=== PATIENT | female | born 2000 | race Caucasian/White ===

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

== ENCOUNTER 2022-01-08 23:39 | Emergency (ER) | payer MEDICAID, SELFPAY ==
[2022-01-08 23:43] VITALS: BP 128/76; PULSE 92; RESP 16; TEMP 37.2; O2SAT 97; BMI 23.3
--- NOTE | 2022-01-09 00:08 | ED_ITS ---
HPI - Extremity Problem General Chief complaint: Extremity Injury, Upper Stated complaint: lac on hand/finger Time Seen by Provider: 01/09/22 00:08 Source: patient Mode of arrival: ambulatory Limitations: no limitations History of Present Illness HPI Narrative: 21-year-old female presents to the emergency department with lacerations to the right upper extremity to the hand, wrist area. Patient tells me that she got upset, punched a window and sustained cuts to her hand and wrist. Tells me she is able to move all her fingers and her wrist without difficulties. Denies numbness or tingling. Up-to-date on a tetanus shot. Patient is right-hand dominant. Not on thinners MD Complaint: other (Laceration ) Onset (ago): hour(s) (1) Pain Consistency: constant Radiation: none Related Data Previous Rx's Medication Instructions Recorded dicyclomine 10 mg capsule 10 mg PO TID PRN abdominal pain 06/26/20 #20 caps doxycycline hyclate 100 mg capsule 100 mg PO BID 10 days #20 caps 01/09/22 Allergies Allergy/AdvReac Type Severity Reaction Status Date / Time amoxicillin [AMOXICILLIN] Allergy Unknown RASH Verified 01/06/21 14:05 cephalexin [From KEFLEX] Allergy Unknown RASH Verified 01/06/21 14:05 Review of Systems Review of Systems: Constitutional : No Fever, No Chills, Cardiovascular : No Chest Pain, No SOB Respiratory : No Dyspnea Gastrointestinal : No abdominal pain Musculoskeletal : No Joint Swelling Skin : No rash, positive skin laceration Neuro : No Weakness, No Numbness Psych : No SI/HI Yes all other systems are reviewed and are negative PMFSH Past Medical History Attestation statement: The following information was validated with the patient. Source: old records reviewed and nursing notes reviewed Medical History No known health problems Social History Social History Substance Use Type: Marijuana Advance Directives: No Advance Directives Information Provided: Yes Physical Exam Vital Signs: Vital Signs: Last Vital Signs Temp 98.9 F 01/08/22 23:43 Pulse 92 01/08/22 23:43 Resp 16 01/08/22 23:43 BP 128/76 01/08/22 23:43 Pulse Ox 97 08/06/22 23:43 O2 Del Method 01/08/22 23:43 BMI result Body Mass Index 23.3 VSS Appearance: Alert.? Oriented X3.? No acute distress.? Head: Normocephalic, atraumatic, no step-offs or deformities Eyes: Pupils equal, round and reactive to light.? ENT: Pharynx normal.? Neck: Normal inspection.? Neck supple.? CVS: Normal heart rate and rhythm.? Pulses normal.? Respiratory: No respiratory distress.? Breath sounds normal.? Abdomen: Soft and nontender.? Skin: Skin warm and dry.? Normal skin color.? Normal skin turgor. + 4 cm linear laceration to the right forearm/wrist. + 3 cm laceration to the ring finger. No evidence of foreign bodies within wounds. Full range of motion to bilateral fingers, wrist. Capillary refill bilaterally less than 2 seconds. Normal sensation. Normal opposition and reposition. 2+ radial pulses equal bilateral. Extremities: No lower extremity edema.? No calf ttp. 5/5 strength to bilateral upper and lower extremities Neuro: Oriented X 3.? No motor deficit.? No sensory deficit. CN 2-12 intact Course Reevaluation(s) Reevaluation #1: Four sutures placed to the forearm, 3 placed to the finger. At this time patient will be discharged home with doxycycline. Advised to return in 7-10 days for suture removal. This time patient will be discharged home for Time: 01:02 MDM - Extremity (Nontraumatic) [facility] Narrative Medical decision making narrative: 0000 21-year-old female presenting with lacerations to the right upper extremity status post punching a window. Up-to-date on tetanus shot. Physical examination significant for + 4 cm linear laceration to the right forearm/wrist. + 3 cm laceration to the ring finger. No evidence of foreign shad dies within wounds. Full range of motion to bilateral fingers, wrist. Capillary refill bilaterally less than 2 seconds. Normal sensation. Normal opposition and reposition. 2+ radial pulses equal bilateral. Plan at this time is to suture the area. Areas well explored, no evidence of foreign body. I did percuss each area and was unable to identify any foreign bodies within. I did educate patient on possibility of retained foreign bodies, glass a not be evident on x-ray therefore an x-ray when all be done. Patient has full range of motion to bilateral fingers and wrists, low suspicion for fractures or dislocations Medical Records Attestation: I reviewed the patient's medical records. Lab Data Attestation: I reviewed the patient's lab results. Critical Care Time Critical Care Time Critical Care Time: No Discharge Plan Discharge Clinical Impression: Laceration of right upper extremity Patient Disposition: Home, Self-Care Instructions: Laceration (ED) Additional Instructions: Take your medications as prescribed. If you were prescribed antibiotics today, it is important that you take your medication to their entirety, do not skip any doses, do not finish them early. Follow-up with your primary care provider this week. Return to the emergency department with new or worsening symptoms. Such as feve rs, chills, chest pain, shortness of breath, nausea, vomiting, dizziness, headache, vision changes, lethargy In case of emergency call 911 Please return for suture removal in 7-10 days. 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
== END 2022-01-09 02:02 | disposition home or self-care (01) ==
PROVIDERS: Emergency Provider Student in an Organized Health Care Education/Training Program; PCP Nurse Practitioner Family
DX: S61.411A Laceration without foreign body of right hand, initial encounter (principal); S51.811A Laceration without foreign body of right forearm, initial encounter; W25.XXXA Contact with sharp glass, initial encounter; Y93.89 Activity, other specified; Y92.019 Unspecified place in single-family (private) house as the place of occurrence of the external cause; Y99.9 Unspecified external cause status
CPT/HCPCS: 12002; 99283; 99284

== ENCOUNTER 2022-08-15 10:19 | Emergency (ER) | payer MEDICAID, SELFPAY ==
[2022-08-15 10:33] VITALS: BP 135/90; PULSE 100; RESP 18; TEMP 36.9; O2SAT 99; BMI 30.4
--- NOTE | 2022-08-15 10:56 | ED_ITS ---
HPI - General Adult General Chief complaint: General Medical Stated complaint: swollen tonsils Time Seen by Provider: 08/15/22 10:55 Source: patient Mode of arrival: ambulatory Limitations: no limitations History of Present Illness HPI narrative: Patient is a 22 year old assigned female at with a history of frequent strep infections presenting to the emergency department today with a sore throat and concern that she has strep throat again. Patient states that her throat has hurt for the last 3 days. Patient denies any dizziness, lightheadedness, abdominal pain, nausea, vomiting, fever, chills, blurry vision, double vision, loss of vision, chest pain, difficulty breathing, shortness of breath, back pain, night sweats, pain with urination, increased urinary frequency, increased urinary urgency, blood in her urine or stool, syncope or a near syncopal episode, recent trauma or falls, bowel incontinence, bladder incontinence, bowel retention, bladder retention, or any other complaints at this time. Onset (ago): day(s) (3) Radiation: non-radiation Severity: mild Severity scale (1-10): 3 Quality: aching and dull Pain Consistency: constant Relieving factors: none Exacerbating factors: none Associated symptoms: denies other symptoms Treatments prior to arrival: none Related Data Previous Rx's Medication Instructions Recorded dicyclomine 10 mg capsule 10 mg PO TID PRN abdominal pain 06/26/20 #20 caps doxycycline hyclate 100 mg capsule 100 mg PO BID 10 days #20 caps 01/09/22 azithromycin 500 mg tablet 500 mg PO DAILY 5 days #5 tabs 08/15/22 Allergies Allergy/AdvReac Type Severity Reaction Status Date / Time amoxicillin [AMOXICILLIN] Allergy Unknown RASH Verified 01/06/21 14:05 cephalexin [From KEFLEX] Allergy Unknown RASH Verified 01/06/21 14:05 Review of Systems Constitutional: Constitutional: Reports no additional constitutional complaints, Denies chills, Denies fever(s) and Denies night sweats Eyes: Eyes: Reports no additional eye complaints, Denies blurry vision, Denies change in vision, Denies diplopia, Denies eye discharge, Denies loss of vision and Denies eye pain ENT: Denies dizziness and Reports sore throat Cardiovascular: Cardiovascular: Reports no additional cardiovascular complaints, Denies chest pain, Denies lightheadedness, Denies Loss of Consciousness and Denies dyspnea Respiratory: Respiratory: Reports no additional respiratory complaints and Denies dyspnea Gastrointestinal: Gastrointestinal: Reports no additional gastrointestinal complaints, Denies abdominal pain, Denies melena, Denies hematochezia, Denies change in bowel habits and Denies change in stool character Genitourinary: Genitourinary: Denies hematuria, Denies urinary frequency, Denies dysuria, Denies urinary incontinence, Denies urinary hesitancy and Denies urinary urgency Musculoskeletal: Musculoskeletal: Reports no additional musculoskeletal complaints, Denies numbness and Denies tingling Neurologic: Denies dizziness, Denies loss of vision, Denies numbness and Denies tingling Psychiatric: Psychiatric: Reports no additional psychiatric complaints Endocrine: Endocrine: Reports no additional endocrine complaints Hematologic/Lymphatic: Hematologic/Lymphatic: Reports no additional hematologic/lymphatic complaints Allergic/Immunologic: Allergic/Immunologic: Reports no additional allergic/immunologic complaints PMFSH Past Medical History Attestation statement: The following information was validated with the patient. Source: old records reviewed and nursing notes reviewed Medical History No known health problems Social History Social History Substance Use Type: Marijuana Advance Directives: No Advance Directives Information Provided: No Physical Exam ED Vital Signs: Vital Signs - 24 hr 08/15/22 10:33 Temperature 98.4 F Pulse Rate 100 Respiratory Rate 18 Blood Pressure 135/90 H Pulse Oximetry 99 BMI result Body Mass Index 30.4 Const General: cooperative, no acute distress, alert and awake Nutritional Appearance: well nourished Orientation/consciousness: patient oriented x3 Limitations: no limitations [facility] Head: Yes normal to inspection and Yes atraumatic Ears: hearing grossly normal bilaterally and external ears normal General nose exam: Normal external nose present, no nasal discharge noted and no epistaxis Face and sinus: Yes normal facial exam, No abrasion and No laceration Mouth: Normal oral and palatal mucosa present, no drooling and no muffled voice Throat: Yes posterior oropharynx abnormal (erythema and exudates present) Eyes General: appearance normal, both eyes and all related structures Periorbital: periorbital findings normal Eyelids: Yes eyelids normal Conjunctivae: conjunctivae normal Pupils: Equal, round and reactive pupils present EOM: EOMs intact bilaterally Neck Neck: Yes normal visual inspection, Yes full ROM and Yes no lymphadenopathy Chest Chest palpation & inspection: normal inspection of the chest Resp Effort & Inspection: normal respiratory effort and able to speak in complete sentences Auscultation: clear to auscultation bilaterally Cardio Rate: regular rate Rhythm: regular rhythm GI Inspection: Yes normal to inspection Neuro General: patient oriented x3 and moves all extremities Cranial nerves: Yes Equal, round and reactive pupils present Cognition (Neuro): normal cognition Motor exam (neuro): 5/5 motor strength present throughout Sensory Exam: Normal double simultaneous stimulation for sensation Coordination: [id number] test normal Extrem General: Yes normal to inspection, Yes full ROM and Yes capillary refill normal Psych Appearance: grossly normal Mental Status: mental status grossly normal Affect: normal affect Attitude: cooperative Thought process: Normal thought process present Thought content: Normal thought content present Insight: Good insight present (Psych) Medical Decision Making Medical Decision Making MDM Narrative: Patient is a 22 year old assigned female at with a history of frequent strep throat infectons presenting to the emergency department today with a sore throat. Patient's physical exam showed mild erythema of the posterior pharynx with exudates. Patient's strep test was positive. I explained my physical exam findings as well as all test results to the patient. I answered all questions asked by the patient. I stressed the importance of the patient taking her medication as prescribed. I stressed the importance of the patient following up with her primary care provider. I stressed the importance of the patient returning to the emergency department immediately if her symptoms were to worsen or if she were to develop any dizziness, shortness of breath, difficulty breathing, chest pain, blurry vision, loss of vision, nausea, vomiting, abdominal pain, fever, chills, back pain, or any other complaints. Patient verbalized agreement and understanding with this treatment plan and discharge. Differential Diagnosis Differential Diagnoses: The differential diagnosis associated with the presentation includes strep throat Lab Data [facility] Lab Attestation statement: I reviewed the patient's lab results. Labs: Lab Results 08/15/22 Range/Units 10:39 S. pyogenes GrpA MARY Positive A (Negative) Discharge Plan Discharge Clinical Impression: Strep pharyngitis Patient Disposition: Home, Self-Care Instructions: Strep Throat (ED) Additional Instructions: Follow up with your primary care provider and an ENT. Return to the emergency department immediately if your symptoms worsen or if you develop any dizziness, shortness of breath, difficulty breathing, chest pain, blurry vision, loss of vi lionel, nausea, vomiting, abdominal pain, fever, chills, back pain, or any other complaints. Prescriptions: New azithromycin 500 mg tablet 500 mg PO DAILY 5 Days Qty: 5 0RF No Action dicyclomine 10 mg capsule 10 mg PO TID PRN (Reason: abdominal pain) Qty: 20 0RF doxycycline hyclate 100 mg capsule 100 mg PO BID 10 Days Qty: 20 0RF Referrals: [facility] [place] Family Medicine [Provider Group] (Call to establish and follow up with a primary care provider. If you already have a primary care provider, please follow up with them.) [facility] [place] Primary Care, Benigno [Provider Group] (Call to establish and follow up with a primary care provider. If you already have a primary care provider, please follow up with them.) [facility] [place] Primary Care,Jay [Provider Group] (Call to establish and follow up with a primary care provider. If you already have a primary care provider, please follow up with them.) Romario Miller [Physician] - (Call to establish and follow up with an ENT.) Stand Alone Forms: Work/School Release Interventions: ED Discharge Assessment Last Done: 08/15/22 13:03 Discharge Date/Time: 08/15/22 13:04 Print Language: Japanese
[2022-08-15 10:59] LABS: IDNOW Serial# 6674DD1D; Strep A Nucleic Acid Positive (Negative)
--- OUTSIDE RECORDS SUMMARY | 2022-08-15 11:13 | XMS_ITS | Continuity of Care Document ---
:2000 Author Organization [facility] Address Unavailable , Care Team Providers Name Role Phone Pearl RANKIN, María Acosta Primary Care Physician Encounter [facility] Date(s): 03/02/21 - 04/01/21 [facility] Attending Physician: Sivan Corrales Admitting Physician: Sivan Corrales Referring Physician: Sivan Corrales
--- OUTSIDE RECORDS SUMMARY | 2022-08-15 11:13 | XMS_ITS | Continuity of Care Document ---
:2000 Author Organization [facility] Address Unavailable , Care Team Providers Name Role Phone Pearl RANKIN, María Acosta Primary Care Physician Encounter [facility] Date(s): 01/29/21 - 04/01/21 [facility] Attending Physician: Nadeen Uribe NP Referring Physician: Shahida Amin NP
--- OUTSIDE RECORDS SUMMARY | 2022-08-15 11:13 | XMS_ITS | Continuity of Care Document ---
:2000 Author Organization [facility] Address [address] [place] [phone]- Care Team Providers Name Role Phone Pearl RANKIN, María Acosta Primary Care Physician Encounter [facility] Date(s): 03/30/22 - 04/29/22 [facility] [address] [place] [phone]- Patient Care team information Care Team Related PersonsName: MADHAVSANTINO WISE Address: home [address] [place], [id number] Name: SANTINO DAMIAN Address: home [address] [place] [id number]
--- OUTSIDE RECORDS SUMMARY | 2022-08-15 11:13 | XMS_ITS | Continuity of Care Document ---
:2000 Author Organization [facility] Physical Medicine [facility] Rehabilitation Address [address] [place] [phone]- Care Team Providers Name Role Phone Pearl RANKIN, María Acosta Primary Care Physician Encounter [facility] Date(s): 05/06/22 - 06/05/22 [facility] Physical Medicine and Rehabilitation [address] [place] [id number]- Patient Care team information Care Team Related PersonsName: MADHAVSANTINO WISE Address: home [address] [facility], [phone] Name: SANTINO DAMINA Address: home [address] [place] [phone]
--- OUTSIDE RECORDS SUMMARY | 2022-08-15 11:13 | XMS_ITS | Continuity of Care Document ---
:2000 Author Organization [facility] Physical Medicine [facility] Rehabilitation Address [address] [place] [phone]- Care Team Providers Name Role Phone Pearl RANKIN, María Acosta Primary Care Physician [place] [facility] [place] 04/06[place]22 - 05/06/22 [facility] Physical Medicine and Rehabilitation [address] [place] [id number] Attending Physician: Sivan Corrales Admitting Physician: Sivan Corrales Referring Physician: Sivan Corrales Patient Care team information Care Team Related PersonsName: MADHAVSANTINO Address: home [address] [place] [address], [phone] Name: SANTINO DAMIAN Address: home [address] [place] [phone]
--- NOTE | 2022-08-15 13:02 | PC.NURSE ---
PT AWAKE, ALERT AND ORIENTED X 3. SPEAKING IN FULL CLEAR SENTENCES. PT DRESSED, SITTING ON STRETCHER, USING PHONE. AWAITING DC HOME SKIN WARM AND DRY. RESP UNLABORED. NO ACUTE DISTRESS NOTED. EVALUATED BY PA. AWARE AND AGREEABLE TO DC PLAN
== END 2022-08-15 13:04 | disposition home or self-care (01) ==
PROVIDERS: Physician Assistant Medical; Emergency Provider Student in an Organized Health Care Education/Training Program
DX: J02.0 Streptococcal pharyngitis (principal); Z79.899 Other long term (current) drug therapy
CPT/HCPCS: 36415; 87651; 99282; 99283

== ENCOUNTER 2023-04-01 22:24 | Emergency (ER) | payer OTHER, MEDICAID, SELFPAY ==
--- NOTE | ~2023-04-01 | XR_ITS ---
EXAMINATION: XR ANKLE, LEFT CLINICAL INFORMATION: Painful COMPARISON: None available. TECHNIQUE: AP, lateral, and mortise views of the left ankle. FINDINGS: There is bimalleolar soft tissue swelling. No visible fracture or dislocation seen. The ankle mortise and subtalar joints are normal. XR/XR ankle LT min 3V IMPRESSION: Bimalleolar soft tissue swelling likely ligamentous injury.. No visible acute fracture or dislocation seen.
[2023-04-01 22:31] VITALS: BP 120/73; PULSE 81; RESP 18; TEMP 36.6; O2SAT 100; BMI 31.9
--- NOTE | 2023-04-01 22:37 | ED.GENADULT ---
HPI - General Adult General Chief complaint: Extremity Injury, Lower Stated complaint: fell left ankle pain Time Seen by Provider: 04/01/23 22:36 Source: patient Mode of arrival: ambulatory Limitations: no limitations History of Present Illness HPI narrative: This is a 23-year-old female without significant medical history presenting with complaints of left ankle pain status post slipping while at work. Slipped down 3-4 steps caught herself on the wall but managed to roll her ankle. Did not sustain any injuries to head, neck, chest, abd/pelvis no loss of consciousness. Reports severe ankle pain worse with movement better at rest. Also reports swelling Denies numbness and tingling. No previous injuries to this ankle. Not on thinners Related Data Previous Rx's Medication Instructions Recorded dicyclomine 10 mg capsule 10 mg PO TID PRN abdominal pain 06/26/20 #20 caps doxycycline hyclate 100 mg capsule 100 mg PO BID 10 days #20 caps 01/09/22 azithromycin 500 mg tablet 500 mg PO DAILY 5 days #5 tabs 08/15/22 ketorolac 10 mg tablet 10 mg PO TID PRN pain 5 days #15 04/01/23 tabs Allergies Allergy/AdvReac Type Severity Reaction Status Date / Time amoxicillin [AMOXICILLIN] Allergy Unknown RASH Verified 01/06/21 14:05 cephalexin [From KEFLEX] Allergy Unknown RASH Verified 01/06/21 14:05 Review of Systems Review of Systems: Constitutional : No Weight loss, No Fever, No Chills, No Fatigue, No Malaise ENT/Mouth : No sore throat, No Rhinorrhea Eyes: No Eye Pain, No Swelling, No Redness Cardiovascular : No Chest Pain, No SOB, No Dyspnea on Exertion, No Orthopnea, No Edema, No Palpitations Respiratory : No Cough, No Sputum, No Wheezing Gastrointestinal : No Nausea, No Vomiting, No Diarrhea, No Constipation, No abdominal Pain, No Hematochezia, No Melena Genitourinary : No Dysuria, No Urinary Frequency, No Hematuria, Musculoskeletal : + joint pain, No Myalgias, + Joint Swelling Skin : No Skin Lesions, No rash Neuro : No Weakness, No Numbness, No Dizziness, No Headache Psych : No Anxiety/Panic, No Depression All other systems reviewed and are negative Yes all other systems are reviewed and are negative [facility] Past Medical History Attestation statement: The following information was validated with the patient. Source: old records reviewed and nursing notes reviewed Medical History No known health problems Social History Social History Substance Use Type: Marijuana Advance Directives: No Advance Directives Information Provided: No Physical Exam ED Vital Signs: Vital Signs - 24 hr 04/01/23 22:31 04/01/23 23:13 Temperature 97.8 F 97.9 F Pulse Rate 81 80 Respiratory Rate 18 16 Blood Pressure 120/73 123/80 Pulse Oximetry 100 98 Oxygen Delivery Method Room Air Room Air BMI result Body Mass Index 31.9 vss Appearance: Alert.? Oriented X3.? No acute distress.? Head: Normocephalic, atraumatic, no step-offs or deformities Eyes: Pupils equal, round and reactive to light.? CVS: Normal heart rate and rhythm.? Pulses normal.? Respiratory: No respiratory distress.? Breath sounds normal.? Abdomen: Soft and nontender.? Skin: Skin warm and dry.? Normal skin color.? Normal skin turgor.? Extremities: No lower extremity edema.? No calf ttp. 5/5 strength to bilateral upper and lower extremities + discomfort/limited range of motion of left ankle, tenderness to palpation to medial and lateral aspect of left ankle worse on the lateral aspect. Normal sensation distally bilaterally. 2+ dorsalis pedis, anterior tibialis, posterior tibialis pulses equal bilateral. Lower extremity digits with less than 2nd capillary refill. Neuro: Oriented X 3.? No motor deficit.? No sensory deficit. CN 2-12 intact . AMbulatory w/ steady gait normal coordination Course Reevaluation(s) Reevaluation #1: X-ray showing by malleolar soft tissue swelling likely ligamentous injury no visible acute fracture dislocation. Will place an air cast, given crutches will have her follow-up with the orthopedic team. Will give Toradol for pain control. Educated patient on diagnosis and treatment plan, answered all question, patient verbalizes understanding. At this time patient will be discharged home, advised to return with new or worsening symptoms. Educated on worrisome signs and symptoms and when to return. At this time I feel comfortable discharge home. Time: 23:28 Medications Administered Discontinued Medications Generic Name Dose Route Start Last Admin Trade Name Freq PRN Reason Stop Dose Admin Ketorolac Tromethamine 30 mg 04/01/23 22:40 04/01/23 22:49 Ketorolac Tromethamine 30 Mg/Ml Vial IM 04/01/23 22:41 30 mg ONCE ONE Administration Medical Decision Making Medical Decision Making [facility] Narrative: 1039 23 yo female presents w/ left ankle pain s/p slip and fall at work. No headstrike or LOC PE w/ discomfort/limited range of motion of left ankle, tenderness to palpation to medial and lateral aspect of left ankle worse on the lateral aspect. Normal sensation distally bilaterally. 2+ dorsalis pedis, anterior tibialis, posterior tibialis pulses equal bilateral. Lower extremity digits with less than 2nd capillary refill. Neurological assessment intact. Concerns for sprain or strain versus fracture versus dislocation. Unlikely neurovascular compromise, threat to Miranda. No signs of open fracture Plan at this time imaging Differential Diagnosis Differential Diagnoses: The differential diagnosis associated with the presentation includes Concerns for sprain or strain versus fracture versus dislocation. Unlikely neurovascular compromise, threat to Miranda. No signs of open fracture Admission/Observation Consideration of admission/observation: Escalation of care including admission/observation considered Independent Interpretation I performed an independent interpretation of an: Plain X-Ray Radiology Impression Discussion of test interpretation with radiology: I have reviewed the radiologist's reading. Prescription Management I considered prescription management with: Pain Medication (toradol ) Critical Care Time Critical Care Time Critical Care Time: No Discharge Plan Discharge Clinical Impression: Ankle sprain and strain, Work related injury Patient Disposition: Home, Self-Care Instructions: Ankle Sprain (ED), R.I.C.E. Treatment (ED) Additional Instructions: Take your medications as prescribed. If you were prescribed antibiotics today, it is important that you take your medication to their entirety, do not skip any doses, do not finish them early. Follow-up with your primary care provider this week. Return to the emergency department with new or worsening symptoms. Such as fevers, chills, chest pain, shortness of breath, nausea, vomiting, dizziness, headache, vision changes, lethargy, numbness, tingling In case of emergency call 911 Toradol has been sent to your pharmacy, you tolerated this well in the department. Please take this as prescribed do not take this with ibuprofen, or other NSAIDs, do not mix this with alcohol. Side effects of this medication including increased risk for bleeding and possible kidney injury. Please follow up with orthopedic team information below call monday. Wear your AIR CAST when possible you may take it off to sleep. Your x-ray shows swelling that is concerning for ligamentous injury may require an MRI for further evaluation treatment this will be up to the orthopedic team. Please follow-up with the work connection as this was work related injury. XR/XR ankle LT min 3V IMPRESSION: Bimalleolar soft tissue swelling likely ligamentous injury.. No visible acute fracture or dislocation seen. Prescriptions: New ketorolac 10 mg tablet 10 mg PO TID PRN (Reason: pain) 5 Days Qty: 15 0RF No Action dicyclomine 10 mg capsule 10 mg PO TID PRN (Reason: abdominal pain) Qty: 20 0RF doxycycline hyclate 100 mg capsule 100 mg PO BID 10 Days Qty: 20 0RF azithromycin 500 mg tablet 500 mg PO DAILY 5 Days Qty: 5 0RF Referrals: [facility] [place] Orthopedic Surgeons [Provider Group] - 2 days Physician,Unknown J [Primary Care Provider] - 2 days Stand Alone Forms: Work/School Release
--- OUTSIDE RECORDS SUMMARY | 2023-04-01 22:46 | XMS_ITS | Continuity of Care Document ---
Author Name Unknown Organization [facility] Address [address] [place] [phone]- Care Team Providers Care Automobile Painter Name Role Phone Not on Staff, PCP Primary Care Physician Unavail able Encounter [facility] Date(s): 02/08/23 - 03/10/[address] [address]- Attending Physician: Sivan Corrales Admitting Physician: Sivan Corrales Referring Physician: AdmtrSivan Allergies, Adverse Reactions, Alerts Substance Reaction Severity Status amoxicillin Active penicillins Active Keflex Amoxicillin Active Medications Multivitamins By Mouth, Daily, 0 Refills, Maintenance, 01/06/23 11:40:00 EDT, Partial fill upon patient request if the prescription is for a schedule II opioid drug. Start Date: 01/06/23 Status: Ordered Patient Care team information Care Team Personnel Name: Not on Staff, PCP Position: S Physician (General Medicine) Member Role: PCP Care Team Related Persons Name: SANTINO COREY Address: home [address] [place] [address], [phone] Name: SANTINO DAMIAN Address: home [address] [place] [phone]
--- OUTSIDE RECORDS SUMMARY | 2023-04-01 22:46 | XMS_ITS | Continuity of Care Document ---
Author Name Unknown Organization [facility] Address [address] [place] [phone]- Care Team Providers Care Director Property Name Role Phone Not on Staff, PCP Primary Care Physician Unavail able Encounter [facility] Date(s): 01/05/23 - 03/10/[address] [address]- Attending Physician: Not on Staff, Attending MD Allergies, Adverse Reactions, Alerts Substance Reaction Severity [...] Related Persons Name: SANTINO COREY Address: home [address] [place] [address], [phone] Name: SANTINO DAMIAN Address: home [address] [place] [id number]
--- OUTSIDE RECORDS SUMMARY | 2023-04-01 22:46 | XMS_ITS | Continuity of Care Document ---
Author Name Unknown Organization [facility] Address [address] [place] [phone]- Care Team Providers Care Tour Coordinator Name Role Phone Not on Staff, PCP Primary Care Physician Unavail able Encounter [facility] Date(s): 01/04/23 - 02/03/[address] [address]- Allergies, Adverse Reactions, Alerts Substance Reaction Severity [...] Related Persons Name: SANTINO COREY Address: home [address] [place] [address], [phone] Name: SANTINO DAMIAN Address: home [address] [place] [phone]
--- OUTSIDE RECORDS SUMMARY | 2023-04-01 22:46 | XMS_ITS | Continuity of Care Document ---
Author Name Unknown Organization [facility] ter Address [address] [place] [id number]- Care Team Providers Care Window Shade Ring Sewer Name Role Phone Not on Staff, PCP Primary Care Physician Unavail able Encounter [facility] Date(s): 01/06/23 - 01/06/[address] [address]- Discharge Disposition: A-D/C Home Attending Physician: Delio Dobbins MD Admitting Physician: Delio Dobbins MD Referring Physician: Delio Dobbins MD Allergies, Adverse Reactions, Alerts Substance Reaction Severity Status amoxicillin Active penicillins Active Keflex Amoxicillin Active Medications Multivitamins By Mouth, Daily, 0 Refills, Maintenance, 01/06/23 11:40:00 EDT, Partial fill upon patient request if the prescription is for a schedule II opioid drug. Start Date: 01/06/23 Status: Ordered Vital Signs Most recent to oldest [Reference Range]: 1 Weight 82.3 kg (01/06/23 11:29 AM) Oxygen Saturation [94-100 %] 100 % (01/06/23 11:29 AM) Pulse Rate [55-90 bpm] 64 bpm (01/06/23 11:29 AM) Blood Pressure [90-138/55-84 mm Hg] 120/ 71mm Hg (01/06/23 11:29 AM) Respiratory Rate [16-30 br/min] 18 br/mi n (01/06/23 11:29 AM) Temperature [96.8-100.4 DegF] 98.5 DegF (01/06/23 11:29 AM) Mode of Delivery (Oxygen) Room air (01/06/23 11:29 AM) Temperature Route Oral (01/06/23 11:29 AM) Dry Weight 82.3 kg (01/06/23 11:29 AM) Weight Obtained Via Standing scale (01/06/23 11:29 AM) Dry Weight Obtained Via Standing scale (01/06/23 11:29 AM) Note * Lydia Andrade RN: PERFORM Event Display: Discharge/Transfer Note Hospital Authored Date: [id number] Nursing Discharge Note Entered On: 01/06/2023 12:51 EDT Performed On: 01/06/2023 12:51 EDT by Lydia Andrade RN Nursing Discharge Note 2 Discharge Time : 01/06/2023 12:51 EDT Discharge Level of Care at Discharge : Home/Correction/Foster Care Patient Left Unit Via : Wheelchair Patient Accompanied Off Unit with : Significant other DC Instructions Provided & Signed by Pt : Yes Patient Understands D/C Instructions : Yes Patient Instructions Discharge Signed : Yes Did Pt have Specialty Bed or Wound Vac : No Lydia Andrade RN - 01/06/2023 12:51 EDT * Lydia Andrade RN: PERFORM Event Display: Patient Education/Instruction Authored Date: [id number] Inpatient Adult Discharge Instructions [address] [address] Name: PRINCESS COREY : 2000 Visit: 01/06/2023 11:20:00 Current Date: 01/06/2023 12:46 Account: [id number] Inpatient Adult Discharge Instructions We would like to thank you for allowing us to assist you with your healthcare needs. The following includes patient education materials and information regarding your injury/illness. Our entire staffstrives to provide an excellent experience for our patients and their families. PLEASE ENSURE YOU FOLLOW-UP PER THE INSTRUCTIONS BELOW! ?? YOUR OPINION IS IMPORTANT TO US! Please complete the survey you may receive by mail or email. Your feedback will be used to make improvements to the healthcare experiences of our patients and their families. Surveys are administered by [employer] ?? If further treatment with your primary care physician or another doctor is recommended, it is important for you to keep the appointment. Call your primary care physician or return to the Emergency Department immediately if your condition worsens, fails to improve, or new symptoms develop. If you need to find a doctor, you can call [facility] Link for a referral at [phone] or toll free at [email or web address] ([phone]) or log in to [email or web address].. ?? You can view and manage your care through the patient portal or by using a health care shiela of your choosing. [employer] is a website that allows you to securely view your medical information including your hospital discharge summary, office visit summaries, medications and follow-up visits. You can also request appointments, renew medications, and request access to your medical information using a health care shiela of your choosing, or just ask a question. You can enroll at [email or web address] or register during your next office visit. You have been discharged from [facility], Patient Care Unit: [id number]. If you have any questions regarding these instructions after you leave, please call us and we will be happy to assist you. [facility] Your Care Team Attending Physician Shilpi RANKIN, Delio Salcido Tests Performed Below is a partial list of the tests performed during your hospitalization. You may have had other tests and procedures not included in this list. Please discuss all test results with your provider. Primary Care Provider Not on Staff, PCP Advance Directive Health Care Proxy on File No Discharge Vitals Temperature: 98.5 DegF Weight: 82.3 kg Pulse Rate: 64 bpm ?? Respiratory Rate: 18 br/min ?? Systolic Blood Pressure: 120 mm Hg ?? Diastolic Blood Pressure: 71 mm Hg ?? Oxygen Saturation: 100 % ?? Studies Pending All tests and labs ordered during this hospital stay have been completed unless listed below. Please discuss all pending results with your provider listed above in these instructions. ?? No incomplete studies found What to do next Instructions From Your Doctor Discharge Orders Scheduled Follow-Up Appointments Monday 1:00 PM EDT ?? Where: [facility] - Nurse Wound [address] [place] [address]- Status: Pending You Need to Schedule the Following Appointments Follow Up with??AN[facility] [employer] [phone] Why: Office will be calling you to discuss appt Discharge Medications PRINCESS COREY :2000 Visit Date:01/06/2023 Medications: Please continue your medications until treatment is completed or stopped by your provider. Medications not listed below should be discontinued. Discuss any questions related to medications with your provider. What How Much When Instructions Next Dose Unchanged Multivitamin, ( Multivitamins) Oral Daily Test Results Below is a partial list of the most recent Laboratory test results done prior to this discharge. You may have had other tests and procedures not included in this list. Please discuss all test resultswith your provider. Allergies (NKA means No Known Allergies) Keflex??(Amoxicillin) amoxicillin penicillins Problems No qualifying data available Education Materials Below is the list of Educational Leaflet Providered with your Discharge Instructions. Control Choices?? Valuables and Belongings I fully understand and agree that [facility] accepts no responsibility for all my personal property including clothing, toilet articles, radios, jewelry, dentures, hearing aids, rings, money, or any other property that is in my possession or is brought to me after admission. I understand certain valuables may be placed in a hospital safe for a short period of time. I understand that the hospital is not liable for loss or damage due to accident, fire, or other natural occurrence while said property is in the safe. I accept full responsibility for any personal property that I keep with me, and will not hold the hospital responsible in case of loss or disappearance. I acknowledge that i have been encouraged to send valuables and belongings home. ? Other Discharge Information ? Pulmonary Rehab Status?? Pulmonary Rehab Discharge Status?? Respiratory Rate: 18 br/min ? Common Emergency Awareness Tips IS IT A STROKE? Act FAST and Check for these signs: FACE Does the face look uneven? ARM Does one arm drift down? SPEECH Does their speech sound strange? TIME Call at any sign of stroke ?? Heart Attack Signs Chest discomfort: Most heart attacks involve discomfort in the center of the chest and lasts more than a few minutes, or goes away and comes back. It can feel like uncomfortable pressure, squeezing, fullness or pain. Discomfort in upper body: Symptoms can include pain or discomfort in one or both arms, back, neck, jaw or stomach. Shortness of breath: With or without discomfort. Other signs: Breaking out in a cold sweat, nausea, or lightheaded. Remember, MINUTES DO MATTER. If you experience any of these heart attack warning signs, call to get immediate medical attention! ?? Smoking can increase your chances of developing chronic health problems and can cause harmful effects to other family members in your house. If you smoke, you are strongly encouraged to quit. Please call [facility] [employer] Link at [phone] or [phone]-[facility] ([phone]) or log in to [email or web address] for referrals to smoking cessation programs. ?? 001 Suicide & Crisis Lifeline is available 26/12 if you or someone you know needs to find a reason to keep living. By calling 367 you'll be connected to a skilled, trained counselor at a crisis center in your area. INPATIENT DISCHARGE INSTRUCTIONS SIGNATURE PAGE PRINCESS COREY Location:[facility] Registration Date and Time:01/06/2023 11:20 EDT Primary Care Physician: Not on Staff, PCP Attending Physician: Shilpi RANKIN, Delio Salcido, I PRINCESS COREY, have received the above patient education materials/instructions and have verbalized understanding. If ambulance or transport services are being used I further acknowledge being given a choice of service. ?? If you need to contact me, please call me at this number: . Patient/Lan/Wan Engineer Name: Patient/Lan/Wan Engineer Signature: Relationship to Patient: Witness Name/Signature: Date: * Lydia Andrade RN: PERFORM Event Display: Patient Education Leaflets Authored Date: [id number] Control Choices ?? 17738 Control Choices We understand gender is a spectrum. We may use gendered terms to talk about anatomy and health risk. Please use this information in a way that works best for you and your provider as you talk about your care. control keeps you from getting from sex. There are many types of control. Somework better than others. New types are tested all the time. Your healthcare provider can help you decide which type is best for you. But no matter which type you choose, you and your partner??must use it the right way each time you have sex.??Some of the most common types are below. Condom A male condom is a thin covering that fits over the penis. A female condom fits inside the vagina. A condom catches sperm that come out of the penis during sex. ?? Spermicide Spermicide is a gel, foam, cream, tablet, or sponge. The sponge also works as a barrier with spermicide. It is put in the vagina before sex to kill sperm. ?? Diaphragm and cervical cap A diaphragm is a round rubber cup that keeps sperm out of the uterus. A cervical cap is like it, but smaller.??They also hold spermicide in place. ?? Intrauterine device (IUD) An IUD is a small device put in the uterus by a healthcare provider. It stays in places for months or years as needed. ?? The pill The control pill is taken daily. It has hormones that stop ovaries from releasing an egg eachmonth. ?? Other hormones Hormones that stop an egg from being released each month from an ovary can be given in other ways. These include injection, implant, patch, or vaginal ring. ?? Other choices Other control methods include: ??? Male sterilization (vasectomy). This??surgery ties off or cuts the tubes (vas deferens) in the testes. It's done so sperm??doesn't come out in the semen released from the penis. ??? Female sterilization. This??surgery blocks or cuts the fallopian tubes. It can be done??through the belly (laparoscopy) to block the tubes or to remove??part or all of them. Itcan also be done during a . ??? Withdrawal method. This is when the penis is pulled out ofthe vagina before ejaculation. The failure rate for this method is high. It ranges from 22% to 28%.??? Fertility awareness method. This is when a person with ovaries and a uterus keeps track of their fertile days. They only have sex at times when they are not likely to get . This method ishard for people who have irregular periods. ?? Emergency contraception (EC) Emergency contraception can help prevent after unprotected sex. Hormone pills are available over the counter to anyone. They are also known as morning after pills. A second type of EC is a copper IUD. This needs to be inserted by a trained??healthcare provider. Either type of EC can be used up to 5 days after sex. But it should be used as soon as possible. The sooner it's used after unprotected sex, the more likely it is to work. EC will not work if you???re already . ?? Things to consider Think about the below: ??? Choose a type of control that is easy for you to use. ??? Learn how to use your control the right way. Read the package. Follow your healthcare provider's instructions. ??? Keep in mind that most types of control don't protect you from sexually transmitted infections (STIs). To protect against STIs, always use a latex condom. If you are allergic to late x, a non-latex condom may give you some protection. ?? Last Reviewed Date: 2021 ?? 9562-2789 [employer] [place]. All rights reserved. This information is not intended as a substitute for professional medical care. Always follow your healthcare professional's instructions. ?? Patient Care team information Care Team Personnel Name: Not on Staff, PCP Position: [facility] Physician (General Medicine) Member Role: PCP Care Team Related Persons Name: SANTINO COREY Address: home [address] [facility], [id number] Name: SANTINO DAMIAN Address: home [address] [place] [address]
[2023-04-01] MEDS: Ketorolac Tromethamine 30 MG/ML VIAL IM (22:49)
[2023-04-01 23:13] VITALS: BP 123/80; PULSE 80; RESP 16; TEMP 36.6; O2SAT 98
[2023-04-01] MEDS: Acetaminophen 325 MG TABLET 650 MG PO (23:33)
== END 2023-04-02 | disposition home or self-care (01) ==
PROVIDERS: Emergency Provider Internal Medicine
DX: S93.402A Sprain of unspecified ligament of left ankle, initial encounter (principal); S96.912A Strain of unspecified muscle and tendon at ankle and foot level, left foot, initial encounter; X50.1XXA Overexertion from prolonged static or awkward postures, initial encounter; Y93.89 Activity, other specified; Y92.511 Restaurant or cafe as the place of occurrence of the external cause; Y99.0 Civilian activity done for income or pay
CPT/HCPCS: 73610; 96372; 99284; J1885

== ENCOUNTER 2023-09-21 14:10 | Emergency (ER) | payer MEDICAID, SELFPAY ==
[2023-09-21 14:28] VITALS: BP 129/79; PULSE 60; RESP 18; TEMP 36.6; O2SAT 98; BMI 33.9
--- NOTE | 2023-09-21 14:30 | ED.GENADULT ---
HPI - General Adult General Chief complaint: General Medical Stated complaint: quest strep throat Time Seen by Provider: 09/21/23 15:43 History of Present Illness HPI narrative: patient complains of sore throat for 3 days and a rash on the right side of her cheek that began yesterday come, the rash is itchy and burning Sore throat hurts when she swallows but she is able to swallow liquids and solids She denies fever denies chills denies ear pain denies difficulty breathing or swallowing denies stiff neck denies headache denies chest pain denies shortness of breath no cough no sputum no runny nose no nausea vomiting or diarrhea no abdominal pain no dysuria Related Data Previous Rx's ?Medication ?Instructions ?Recorded dicyclomine 10 mg capsule 10 mg PO TID PRN abdominal pain 06/26/20 #20 caps doxycycline hyclate 100 mg capsule 100 mg PO BID 10 days #20 caps 01/09/22 azithromycin 500 mg tablet 500 mg PO DAILY 5 days #5 tabs 08/15/22 ketorolac 10 mg tablet 10 mg PO TID PRN pain 5 days #15 04/01/23 tabs ibuprofen 600 mg tablet 600 mg PO Q6H PRN pain #20 tabs 09/21/23 prednisone 20 mg tablet 60 mg (3 x 20 mg) PO DAILY 1 day 09/21/23 #3 tabs valacyclovir 1 gram tablet 1,000 mg PO BID 7 days #14 tabs 09/21/23 (Valtrex) Allergies Allergy/AdvReac Type Severity Reaction Status Date / Time amoxicillin [AMOXICILLIN] Allergy Unknown RASH Verified 09/21/23 14:29 cephalexin [From KEFLEX] Allergy Unknown RASH Verified 09/21/23 14:29 [facility] Past Medical History Source: nursing notes reviewed Medical History No known health problems Social History Social History Substance Use Type: Marijuana Advance Directives: No Advance Directives Information Provided: No Physical Exam ED Vital Signs: Vital Signs - 24 hr 09/21/23 14:28 Temperature 98 F Pulse Rate 60 Respiratory Rate 18 Blood Pressure 129/79 Pulse Oximetry 98 Oxygen Delivery Method Room Air BMI result Body Mass Index 33.9 general appearance is no acute distress Eyes no redness or discharge The sinuses nontender no congestion The pharynx there is some redness of the pharynx, no significant swelling, uvula midline, membranes are moist, voice is normal no trismus no drooling The facial exam on the right side of the face just lateral on the cheek to the right side of the mouth is a raised red macular rash, appears to be to vesicles within it Neck is supple Chest clear to auscultation bilateral Heart no murmur Extremities full range motion x4 Course Course Course Narrative: This is an RME: Additional HPI, ROS, PE not included below will be deferred to primary provider. 23 yo F presents w/ sore throat concerned she has strep. Also concerned she may be getting an alergic rx. No acute distress. Plan- strep test Strep test was negative and well-appearing patient with sore throat is given a dose of prednisone to reduce throat inflammation, there were no lesions or sores that I saw inside the mouth For the unilateral rash on the right side of the face it had the appearance possibly of an early impetigo or an early herpes simplex virus She is treated with Valtrex for possible herpes simplex 1 virus as well as mupirocin for possibly impetigo Well-appearing patient is discharged Medical Decision Making Lab Data Labs: Lab Results 09/21/23 Range/Units 14:48 S. pyogenes GrpA MARY Negative (Negative) Discharge Plan Discharge Clinical Impression: Pharyngitis, Rash Patient Disposition: Home, Self-Care Additional Instructions: strep test was negative and we are treating with prednisone today and tomorrow which usually reduces inflammation in the throat and makes the patient feel better, you can use also Tylenol or Motrin Rash on 1 side of the face could be impetigo, or it could be a herpes simplex virus which can cause cold sore type rash on the face We are using mupirocin cream for possible impetigo and Valtrex for possible viral rash Return to the ER any time any worse condition or concerns Follow with primary doctor next week if not improved Prescriptions: New ibuprofen 600 mg tablet 600 mg PO Q6H PRN (Reason: pain) Qty: 20 0RF prednisone 20 mg tablet 60 mg PO DAILY 1 Days Qty: 3 0RF valacyclovir [Valtrex] 1 gram tablet 1,000 mg PO BID 7 Days Qty: 14 0RF No Action dicyclomine 10 mg capsule 10 mg PO TID PRN (Reason: abdominal pain) Qty: 20 0RF doxycycline hyclate 100 mg capsule 100 mg PO BID 10 Days Qty: 20 0RF azithromycin 500 mg tablet 500 mg PO DAILY 5 Days Qty: 5 0RF ketorolac 10 mg tablet 10 mg PO TID PRN (Reason: pain) 5 Days Qty: 15 0RF Stand Alone Forms: Work/School Release Print Language: Palestinian
[2023-09-21 15:11] LABS: IDNOW Serial# 08D9AD1C; Strep A Nucleic Acid Negative (Negative)
--- OUTSIDE RECORDS SUMMARY | 2023-09-21 15:50 | XMS_ITS | Continuity of Care Document ---
Author Organization [facility] Address Unknown Care Team Providers Care Linux Engineer Name Role Phone Jordan RANKIN, Jason Donovan Primary Care Physician Encounter [facility] Date(s): 01/26/21 - 02/25/21 [facility] Attending Physician: Sivan Corrales Admitting Physician: Sivan Corrales Referring Physician: Sivan Corrales
--- OUTSIDE RECORDS SUMMARY | 2023-09-21 15:50 | XMS_ITS | Continuity of Care Document ---
Author Organization [facility] Address Unknown Care Team Providers Care Weaving Professor Name Role Phone Jordan RANKIN, Jason Donovan Primary Care Physician Encounter [facility] Date(s): 01/21/21 - 02/25/21 [facility] Attending Physician: Noel RANKIN, Svetlana Shaw Referring Physician: Shahida Amin NP
--- OUTSIDE RECORDS SUMMARY | 2023-09-21 15:51 | XMS_ITS | Continuity of Care Document ---
Author Organization [facility] Address [address] [place] [address]- Care Team Providers Care Food Editor Name Role Phone Jason Ortega MD Primary Care Physician [phone] Encounter [facility] Date(s): 03/23/22 - 06/10/22 [facility] [address] [place] [address]- Attending Physician: Shahida Hardy Referring Physician: Lucas Knowles MD Patient Care team information Care Team Personnel Name: Jason Ortega MD Position: [facility] General Pediatrics MD Member Role: PCP Address: Address: [address] [place] [address], [facility] [address] [place] [address]- Care Team Related Persons Name: KARINA COREY Address: home [address] [place] [address]
--- OUTSIDE RECORDS SUMMARY | 2023-09-21 15:51 | XMS_ITS | Continuity of Care Document ---
Author Organization [facility] Address [address] [address]- Care Team Providers Care Spring Machine Operator Name Role Phone Jason Ortega MD Primary Care Physician [phone] Encounter [facility] Date(s): 05/11/22 - 06/10/22 [facility] [address] [place] [address]- Attending Physician: Admtr, Ar8 Admitting Physician: Admgreta ArReynaldo Referring Physician: Admtr, Ar8 Patient Care team information Care Team Personnel Name: Jason Ortega MD Position: [facility] General Pediatrics MD Member Role: PCP Address: Address: [address] [place] [address], [address] [place] [address]- Care Team Related Persons Name: KARINA COREY Address: home [address] [place] [address]
[2023-09-21] MEDS: valACYclovir HCL 1,000 MG TABLET 1000 MG PO (17:11)
[2023-09-21] MEDS: predniSONE 20 MG TABLET 60 MG PO (17:11)
[2023-09-21 17:14] VITALS: BP 124/72; PULSE 66; RESP 18; TEMP 36.8; O2SAT 97
== END 2023-09-21 17:14 | disposition home or self-care (01) ==
PROVIDERS: Physician Assistant; Emergency Provider Emergency Medicine
DX: J02.9 Acute pharyngitis, unspecified (principal); R21 Rash and other nonspecific skin eruption
CPT/HCPCS: 87651; 99282; 99283

== ENCOUNTER 2023-11-12 13:15 | Emergency (ER) | payer MEDICAID, SELFPAY ==
[2023-11-12 14:05] VITALS: BP 116/77; PULSE 73; RESP 16; TEMP 37; O2SAT 99; BMI 34.9
--- NOTE | 2023-11-12 14:07 | ED.GENADULT ---
HPI - General Adult General Chief complaint: Upper Respiratory Symptoms Stated complaint: Sore throat Time Seen by Provider: 11/12/23 16:06 Source: patient Mode of arrival: ambulatory Limitations: no limitations History of Present Illness HPI narrative: patient is a 23-year-old female presents emergency department for evaluation of a dry nonproductive cough, sore scratchy throat, myalgias , rhinitis. denies fevers or chills. Admits to a history of seasonal allergies, states she has not been taking her allergy medication as she is currently 8 weeks with estimated due date 06/20/2024 and she has not certain what is safe to take during . Related Data Previous Rx's ?Medication ?Instructions ?Recorded dicyclomine 10 mg capsule 10 mg PO TID PRN abdominal pain 06/26/20 #20 caps doxycycline hyclate 100 mg capsule 100 mg PO BID 10 days #20 caps 01/09/22 azithromycin 500 mg tablet 500 mg PO DAILY 5 days #5 tabs 08/15/22 ketorolac 10 mg tablet 10 mg PO TID PRN pain 5 days #15 04/01/23 tabs ibuprofen 600 mg tablet 600 mg PO Q6H PRN pain #20 tabs 09/21/23 prednisone 20 mg tablet 60 mg (3 x 20 mg) PO DAILY 1 day 09/21/23 #3 tabs valacyclovir 1 gram tablet 1,000 mg PO BID 7 days #14 tabs 09/21/23 (Valtrex) cetirizine 10 mg tablet 10 mg PO DAILY PRN allergy 11/12/23 symptoms #14 tabs dextromethorphan HBr 15 mg tablet 30 mg (2 x 15 mg) PO Q4-6H PRN 11/12/23 cough #20 tabs Allergies Allergy/AdvReac Type Severity Reaction Status Date / Time amoxicillin [AMOXICILLIN] Allergy Unknown RASH Verified 11/12/23 14:08 cephalexin [From KEFLEX] Allergy Unknown RASH Verified 11/12/23 14:08 Review of Systems Review of Systems: Yes all other systems are reviewed and are negative PMFSH Past Medical History Attestation statement: The following information was validated with the patient. Source: old records reviewed Medical History No known health problems Social History Social History Substance Use Type: Marijuana Advance Directives: No Advance Directives on File: No Do you have a plan to hurt others: No Plan Physical Exam ED Vital Signs: Vital Signs - 24 hr 11/12/23 14:05 11/12/23 16:00 11/12/23 17:09 Temperature 98.6 F 98.9 F 98.5 F Pulse Rate 73 67 75 Respiratory Rate 16 17 Blood Pressure 116/77 116/78 120/69 Pulse Oximetry 99 100 100 Oxygen Delivery Method Room Air Room Air Room Air BMI result Body Mass Index 34.9 Appearance: Alert.?Oriented to person, place and time. No acute distress.?Normal affect. Eyes: Pupils equal, round and reactive to light.? ENT: Pharynx Mildly erythematous?? Uvula midline. No trismus. No drooling. No tonsillar hypertrophy. Neck: Normal inspection.? Neck supple.?? CVS: Heart sounds normal. Normal heart rate and rhythm.? Pulses normal.?? Respiratory: No respiratory distress.? Lung sounds clear to auscultation bilaterally?? Abdomen: Soft and non-tender. Normoactive bowel sounds. ? Skin: Skin warm and dry.? Normal skin color.?.?? Extremities: No lower extremity edema.? Neuro: Moves all extremities spontaneously. Sensation intact bilaterally. Ambulates with normal steady gait. Course Course Course Narrative: RME; RME: DOne by VIVEK Figueroa: 23 yold female presents to the ED for coughing, sore throat, and bodyaches for couple of days. Patient states pmh of Strep. Oral exam normal. Strep SARs ordered. Patient states 8 weeks . Patient denies any abdominal pain, leg swelling, calf pain, vaginal bleeding. Medical Decision Making Medical Decision Making MDM Narrative: patient is a 23-year-old female who presents emergency department for evaluation of a dry nonproductive cough sore throat myalgias and rhinitis. Admits to a history of seasonal allergies has not been compliant with allergy medication as she was uncertain whether it was safe to take during . On exam, she has mild pharyngitis, no evidence of RPA / TIMBER POISONER. No respiratory distress. Managing secretions appropriately. Speaking clear full sentences. LS CTA. Does not appear consistent with pneumonia. Viral testing and strep testing today is negative. Discussed conservative treatment in addition to dextromethorphan and cetirizine which would be safe for her to take during . Advised outpatient follow-up with her primary care provider. All questions answered. Stable for discharge Differential Diagnosis Differential Diagnoses: The differential diagnosis associated with the presentation includes ( see narrative above) Lab Data MDM Lab Attestation statement: I reviewed the patient's lab results. ( see narrative above) Labs: Lab Results 11/12/23 Range/Units 15:10 Influenza Type A (PCR) NEGATIVE (Negative) Influenza Type B (PCR) NEGATIVE (Negative) RSV RNA Qual (PCR) NEGATIVE (Negative) SARS-CoV-2 RNA (RT-PCR) NEGATIVE (Negative) S. pyogenes GrpA MARY Negative (Negative) Independent Historian Clinical information obtained from an independent historian. History obtained from or confirmed by: Spouse Tests considered The following testing was considered but not selected: CXR deferred, unlikely pneumonia Prescription Management I considered prescription management with: Other ( see narrative above) Discharge Plan Discharge Clinical Impression: Pharyngitis Patient Disposition: Home, Self-Care Instructions: Pharyngitis (ED) Additional Instructions: as discussed, testing results today for flu, RSV, COVID, and strep were all negative. You may take medications as prescribed For allergies /cough. be sure to stay well hydrated. You may also perform warm saltwater gargles Prescriptions: New dextromethorphan HBr 15 mg tablet 30 mg PO Q4-6H PRN (Reason: cough) Qty: 20 0RF Rx Instructions: DNExceed 4 doses/24h cetirizine 10 mg tablet 10 mg PO DAILY PRN (Reason: allergy symptoms) Qty: 14 0RF No Action dicyclomine 10 mg capsule 10 mg PO TID PRN (Reason: abdominal pain) Qty: 20 0RF doxycycline hyclate 100 mg capsule 100 mg PO BID 10 Days Qty: 20 0RF azithromycin 500 mg tablet 500 mg PO DAILY 5 Days Qty: 5 0RF ketorolac 10 mg tablet 10 mg PO TID PRN (Reason: pain) 5 Days Qty: 15 0RF ibuprofen 600 mg tablet 600 mg PO Q6H PRN (Reason: pain) Qty: 20 0RF prednisone 20 mg tablet 60 mg PO DAILY 1 Days Qty: 3 0RF valacyclovir [Valtrex] 1 gram tablet 1,000 mg PO BID 7 Days Qty: 14 0RF Referrals: Physician,Unknown J [Primary Care Provider] - Interventions: ED Discharge Assessment Last Done: 11/12/23 17:09 Discharge Date/Time: 11/12/23 17:12 Print Language: Bengali
[2023-11-12 15:44] LABS: IDNOW Serial# 08D9AD1C; Strep A Nucleic Acid Negative (Negative)
[2023-11-12 15:58] LABS: Influenza A PCR NEGATIVE (Negative); Influenza B PCR NEGATIVE (Negative); Resp Syncy Virus RNA Qual PCR NEGATIVE (Negative); SARS COV2 PCR INHOUSE NEGATIVE (Negative)
[2023-11-12 16:00] VITALS: BP 116/78; PULSE 67; TEMP 37.2; O2SAT 100
[2023-11-12 17:09] VITALS: BP 120/69; PULSE 75; RESP 17; TEMP 36.9; O2SAT 100
== END 2023-11-12 17:12 | disposition home or self-care (01) ==
PROVIDERS: Physician Assistant; Emergency Provider Emergency Medicine
DX: O99.511 Diseases of the respiratory system complicating pregnancy, first trimester (principal); J02.9 Acute pharyngitis, unspecified; Z3A.08 8 weeks gestation of pregnancy
CPT/HCPCS: 0241U; 87651; 99283; 99284

== ENCOUNTER 2024-01-16 05:17 | Emergency (ER) | payer MEDICAID, SELFPAY ==
--- NOTE | ~2024-01-16 | US_ITS ---
EXAMINATION: US , LIMITED CLINICAL INFORMATION: Vaginal spotting, 17 week patient. HCG equals 4510 COMPARISON: None available. TECHNIQUE: Real-time ultrasound of the gravid uterus with obstetrical evaluation. FINDINGS: Single live intrauterine gestation is identified in cephalic presentation. Calculated gestational age from earliest ultrasound is 17 weeks 5 days. Heart rate of 144 bpm is identified. Placenta is anterior in location with no focal abnormality. Amniotic fluid volume appears appropriate. Cervix appears closed and measures between 3.2 x 3.4 cm. Right ovary measures 3.2 x 2.1 x 2.2 cm. Left ovary measures 3.7 x 1.7 x 1.9 cm. US/US OB limited IMPRESSION: Single live intrauterine gestation with calculated gestational age of 17 weeks 5 days, cephalic presentation. Unremarkable appearing anterior placenta.
[2024-01-16 05:23] VITALS: BP 126/82; PULSE 72; O2SAT 98
[2024-01-16 05:35] VITALS: BP 123/74; PULSE 89; RESP 18; TEMP 36.7; O2SAT 100; BMI 35.6
[2024-01-16 06:48] LABS: MANUAL DIFF FLAG NO
[2024-01-16 06:50] LABS: Basophils Percent Auto 0.2 % (0-2); Eosinophils Absolute Auto 0.1 X10*3/uL (0.0-0.4); Eosinophils Percent Auto 0.9 % (0-4); Hematocrit 34.7 % (37.0-47.0); Hemoglobin 11.4 g/dl (12.0-16.0); Imm Gran Abs Auto 0.08 X10*3/uL (0.00-0.03); Imm Gran Pct Auto 0.5 % (0.0-0.4); Lymphocytes Absolute Auto 2.4 X10*3/uL (1.2-4.9); Lymphocytes Percent Auto 15.7 % (20-40); Mean Corpuscular HGB Conc 32.9 g/dl (31.0-35.0); Mean Corpuscular Hemoglobin 26.8 pg (27.0-33.0); Mean Corpuscular Volume 81.6 fL (80.0-98.0); Mean Platelet Volume 9.5 fL (9.4-12.3); Monocytes Absolute Auto 0.9 X10*3/uL (0.1-1.2); Monocytes Percent Auto 5.7 % (2-11); Platelet Count 307 X10*3/uL (160-400); Red Blood Count 4.25 X10*6/uL (4.20-5.50); Red Cell Distribution Width 13.7 % (11.0-16.0); White Blood Count 15.6 X10*3/uL (4.8-10.8)
[2024-01-16 07:17] LABS: Anion Gap 11 (12-20); Blood Urea Nitrogen 9 mg/dL (9-16); Calcium 9.6 mg/dL (8.4-10.2); Carbon Dioxide 21 mmol/L (22-29); Chloride 108 mmol/L (96-108); Creatinine Clr Calc Pharmacy 153.1; Estimated Glomerular Filt Rate > 60; Glucose Random 93 mg/dL (60-115); Potassium 4.2 mmol/L (3.3-5.1); Sodium 136 mmol/L (135-145)
[2024-01-16 07:21] LABS: HCG Quantitative 4510 mIU/mL
[2024-01-16 07:37] LABS: Appearance Urine Clear; Color Urine Yellow; Glucose Urine UA Negative (Negative); Leukocyte Esterase Urine Negative (Negative); Nitrite Urine Negative (Negative); Urine Blood Negative (Negative); Urine Ketones Negative (Negative); Urine Protein Negative (Neg-Trace)
[2024-01-16 07:39] LABS: Bacteria Urine None Seen (None Seen); Hyaline Casts Urine 0-2 /LPF (0-2); RBC Urine 0-2 /HPF (0-2); Squamous Epithelial Cell Urine 0-2 /HPF (0-2); WBC Urine 0-5 /HPF (0-5)
[2024-01-16 07:51] VITALS: BP 113/74; PULSE 71; RESP 17; TEMP 36.9; O2SAT 97
--- NOTE | 2024-01-16 08:09 | ED_ITS ---
HPI - General Adult General Chief complaint: Vaginal Bleeding Stated complaint: spotting Time Seen by Provider: 01/16/24 08:00 Source: patient Mode of arrival: ambulatory Limitations: no limitations History of Present Illness ED Provider: stacy PAULA narrative: Patient is a 23-year-old female with history of previous first trimester miscarriage (2-3 weeks) currently 17 weeks presenting to the emergency department with complaint of lower abdominal cramping and spotting since this morning. She reports that she noted dark red blood when wiping after using the bathroom this morning. Did not note any clots. She sees [facility] for her OB care. Has not felt movement since Monday or Monday. Denies nausea, vomiting or diarrhea. Denies fevers. Denies back or flank pain. Has had ultrasound already confirming IUP for this . complaint: vaginal bleeding in Onset (ago): hour(s) Location: abdomen Severity: mild Quality: other (cramping) Treatments prior to arrival: none Related Data Previous Rx's ?Medication ?Instructions ?Recorded dicyclomine 10 mg capsule 10 mg PO TID PRN abdominal pain 06/26/20 #20 caps doxycycline hyclate 100 mg capsule 100 mg PO BID 10 days #20 caps 01/09/22 azithromycin 500 mg tablet 500 mg PO DAILY 5 days #5 tabs 08/15/22 ketorolac 10 mg tablet 10 mg PO TID PRN pain 5 days #15 04/01/23 tabs ibuprofen 600 mg tablet 600 mg PO Q6H PRN pain #20 tabs 09/21/23 prednisone 20 mg tablet 60 mg (3 x 20 mg) PO DAILY 1 day 09/21/23 #3 tabs valacyclovir 1 gram tablet 1,000 mg PO BID 7 days #14 tabs 09/21/23 (Valtrex) cetirizine 10 mg tablet 10 mg PO DAILY PRN allergy 11/12/23 symptoms #14 tabs dextromethorphan HBr 15 mg tablet 30 mg (2 x 15 mg) PO Q4-6H PRN 11/12/23 cough #20 tabs Allergies Allergy/AdvReac Type Severity Reaction Status Date / Time amoxicillin [AMOXICILLIN] Allergy Unknown RASH Verified 01/16/24 05:37 cephalexin [From KEFLEX] Allergy Unknown RASH Verified 01/16/24 05:37 Review of Systems 2 Review of Systems: As per HPI. Yes all other systems are reviewed and are negative Constitutional: Constitutional: Reports as per HPI [facility] Past Medical History Medical History No known health problems Social History Social History Substance Use Type: Marijuana Advance Directives: No Advance Directives Information Provided: No Physical Exam ED Vital Signs: Vital Signs - 24 hr 01/16/24 05:35 01/16/24 07:51 01/16/24 08:34 Temperature 98.0 F 98.5 F 97.9 F Pulse Rate 89 71 74 Respiratory Rate 18 17 16 Blood Pressure 123/74 113/74 115/70 Pulse Oximetry 100 97 100 Oxygen Delivery Method Room Air Room Air Room Air 01/16/24 10:00 Temperature 97.9 F Pulse Rate 77 Respiratory Rate 17 Blood Pressure 108/74 Pulse Oximetry 100 Oxygen Delivery Method Room Air BMI result Body Mass Index 35.6 Vital signs have been reviewed and appear to be correct. Blood pressure normal. Heart rate normal. Respiratory rate normal. Temperature normal. Oxygen saturation normal. Const General: cooperative, healthy appearing and no acute distress Orientation/consciousness: oriented to person, oriented to place, oriented to time and patient oriented x3 Limitations: no limitations HENMT Head: Yes normocephalic and Yes atraumatic Ears: external ears normal General nose exam: Normal external nose present Face and sinus: Yes face symmetric Mouth: oropharynx normal and moist mucous membranes Throat: Yes uvula midline Eyes Pupils: Equal, round and reactive pupils present Neck Neck: Yes normal visual inspection and Yes supple Resp Effort & Inspection: normal respiratory effort and able to speak in complete sentences Auscultation: clear to auscultation bilaterally Cardio Rate: regular rate Rhythm: regular rhythm Heart sounds: S1 normal heart sound present and S2 normal heart sound present GI Inspection: Yes other (gravid abdomen) Palpation (GI): Soft to palpation and nontender Auscultation: normoactive bowel sounds Other: Pelvic exam chaperoned by RENEE Cook tech. General: Yes no CVA tenderness Speculum Exam - Vagina: normal appearance of the vagina, normal palpation, normal vaginal discharge and No vaginal bleeding Speculum Exam - Cervix: normal appearance of the cervix, normal palpation, Cervical os closed and normal vervical discharge Bimanual exam- vagina & uterus: normal palpation and normal palpation OB/external & speculum: No vaginal bleeding Back/Spine/Pelvis Back: no CVA tenderness Skin General skin exam: elasticity normal and turgor normal Neuro General: oriented to person, oriented to place, oriented to time, patient oriented x3, moves all extremities, no focal motor deficits and CN's II-XI intact bilaterally Cranial nerves: Yes Equal, round and reactive pupils present Cognition (Neuro): normal cognition Extrem General: Yes full ROM, Yes no pedal edema and Yes no calf tenderness Psych Mental Status: mental status grossly normal Affect: normal affect Thought process: Normal thought process present Medical Decision Making Medical Decision Making [facility] Narrative: Patient is a 23-year-old female with history of previous first trimester miscarriage (2-3 weeks) currently 17 weeks presenting to the emergency department with complaint of lower abdominal cramping and spotting since this morning. On exam patient is awake, A+Ox3, VS WNL, afebrile, normal neurological exam without focal deficits, physical exam findings as above. Given reported symptoms and physical exam findings, initial differential includes spontaneous , placenta previa, placental abruption, cervical polyp. Labs notable for leukocytosis, beta HCG 4510, RH positive. CT NG and trichomonas pending. Ultrasound notable for single live intrauterine with normal FHR. My interpretation is in agreement with the radiologist's interpretation. Cervical os closed and no vaginal bleeding noted on pelvic exam. Case discussed with Dr. Joe who recommends that patient follow up with her OB tomorrow, go directly to [facility] with any additional vaginal bleeding or worsening lower abdominal cramps and remain on pelvic rest until she follows up with her OB. And discussed with patient at bedside and all questions answered. Return precautions discussed. Patient verbalized understanding of and agreement with plan. Differential Diagnosis Differential Diagnoses: The differential diagnosis associated with the presentation includes As per [facility]. Admission/Observation Consideration of admission/observation: Escalation of care including admission/observation considered Patient would have been admitted to the hospital had their work up had any findings where hospital admission was appropriate and their clinical presentation warranted hospital admission. Consult Healthcare Provider Management of the patient was discussed with: Customs Entry Clerk (Dr. Joe, [facility] [employer]) Lab Data [facility] Lab Attestation statement: I reviewed the patient's lab results. As per [facility] 01/16/24 06:44 01/16/24 06:44 Labs: Lab Results 01/16/24 01/16/24 01/16/24 Range/Units 06:44 07:28 08:48 WBC 15.6 H (4.8-10.8) X10*3/uL RBC 4.25 (4.20-5.50) X10*6/uL Hgb 11.4 L (12.0-16.0) g/dl Hct 34.7 L (37.0-47.0) % MCV 81.6 (80.0-98.0) fL MCH 26.8 L (27.0-33.0) pg MCHC 32.9 (31.0-35.0) g/dl RDW 13.7 (11.0-16.0) % Plt Count 307 (160-400) X10*3/uL MPV 9.5 (9.4-12.3) fL Immature Gran % (Auto) 0.5 H (0.0-0.4) % Neut % (Auto) 77.0 H (45-73) % Lymph % (Auto) 15.7 L (20-40) % [place] % (Auto) 5.7 (2-11) % Eos % (Auto) 0.9 (0-4) % Baso % (Auto) 0.2 (0-2) % Lymph # (Auto) 2.4 (1.2-4.9) X10*3/uL [place] # (Auto) 0.9 (0.1-1.2) X10*3/uL Eos # (Auto) 0.1 (0.0-0.4) X10*3/uL Baso # (Auto) 0.0 (0.0-0.2) X10*3/uL Abs Immat Gran (auto) 0.08 H (0.00-0.03) X10*3/uL Absolute Neuts (auto) 12.0 H (2.0-8.3) x10*3/uL Absolute Nucleated RBC 0.000 (0.0-0.012) X10*3/uL Nucleated RBC % (auto) 0.0 (0.0-0.2) /100WBC Sodium 136 (135-145) mmol/L Potassium 4.2 (3.3-5.1) mmol/L Chloride 108 (96-108) mmol/L Carbon Dioxide 21 L (22-29) mmol/L Anion Gap 11 L (12-20) BUN 9 (9-16) mg/dL Creatinine 0.67 (0.5-1.4) mg/dL Estim Creat Clear Calc 153.1 Estimated GFR > 60 Random Glucose 93 (60-115) mg/dL Calcium 9.6 (8.4-10.2) mg/dL Beta HCG, Quant 4510 mIU/mL Urine Color Yellow Urine Appearance Clear Urine pH 7.0 (5.0-9.0) Ur Specific [place] 1.010 (1.005-1.025) Urine Protein Negative (Neg-Trace) mg/dL Urine Glucose (UA) Negative (Negative) mg/dL Urine Ketones Negative (Negative) mg/dL Urine Blood Negative (Negative) Urine Nitrite Negative (Negative) Ur Leukocyte Esterase Negative (Negative) Urine RBC 0-2 (0-2) /HPF Urine WBC 0-5 (0-5) /HPF Ur Squamous Epith Cells 0-2 (0-2) /HPF Urine Bacteria None Seen (None Seen) Hyaline Casts 0-2 (0-2) /LPF Blood Type A Positive Independent Interpretation I performed an independent interpretation of an: Ultrasound Interpretation: Ultrasound notable for single live intrauterine with normal FHR. Radiology Impression Discussion of test interpretation with radiology: I have reviewed the radiologist's reading. Radiologist Impression: US/US OB limited IMPRESSION: Single live intrauterine gestation with calculated gestational age of 17 weeks 5 days, cephalic presentation. Unremarkable appearing anterior placenta. External Record Review External record reviewed: Inpatient record, Office record and Outpatient record Critical Care Time Critical Care Time Critical Care Time: Yes Total Critical Care Time: 39 Attestation: I have personally provided critical care time exclusive of time spent on separately billable procedures. Time includes review of lab data, radiology results, discussion with consultants, and monitoring for potential decompensation. Intervention performed as documented. Discharge Plan Discharge Clinical Impression: Vaginal bleeding, Threatened Patient Disposition: Home, Self-Care Instructions: Threatened Miscarriage (ED) Additional Instructions: You were evaluated in the emergency department today for vaginal bleeding during . We recommend that you follow-up with your [facility] [employer] 1st thing tomorrow. If you have additional vaginal bleeding or worsening abdominal cramping go directly to [facility]. You should refrain from intercourse until cleared by your [employer]. Return to any emergency department or call 911 if you develop heavy vaginal bleeding, and dizziness or lightheadedness, fainting, severe abdominal pain or any other concerning symptoms. You were tested for sexually transmitted infections today and the results are pending, you will be contacted if any results are positive. Prescriptions: No Action dicyclomine 10 mg capsule 10 mg PO TID PRN (Reason: abdominal pain) Qty: 20 0RF doxycycline hyclate 100 mg capsule 100 mg PO BID 10 Days Qty: 20 0RF azithromycin 500 mg tablet 500 mg PO DAILY 5 Days Qty: 5 0RF ketorolac 10 mg tablet 10 mg PO TID PRN (Reason: pain) 5 Days Qty: 15 0RF ibuprofen 600 mg tablet 600 mg PO Q6H PRN (Reason: pain) Qty: 20 0RF prednisone 20 mg tablet 60 mg PO DAILY 1 Days Qty: 3 0RF valacyclovir [Valtrex] 1 gram tablet 1,000 mg PO BID 7 Days Qty: 14 0RF dextromethorphan HBr 15 mg tablet 30 mg PO Q4-6H PRN (Reason: cough) Qty: 20 0RF Rx Instructions: DNExceed 4 doses/24h cetirizine 10 mg tablet 10 mg PO DAILY PRN (Reason: allergy symptoms) Qty: 14 0RF Stand Alone Forms: Work/School Release Print Language: Citizen Of [place]
--- NOTE | 2024-01-16 08:30 | PC.NURSE ---
a&ox4. vss and up to date. pt presents to the ED w/ intermittent lower abd cramping/bright red spotting x this am. pt reports being 17 weeks . hx of miscarriages. d/t pt's hx - pt concerned for possible miscarriage and wants to be evaluated. denies any episodes of n/v/d/dizzinesses/lightheadedness/BAKER. pt and partner report sx started after having an intense argument. pt seems to be resting in no apparent distress. no sob/wob noted. respirations even/unlabored. pt waiting for US to be completed. partner bedside for support. plan of care ongoing. call godwin placed within reach.
[2024-01-16 08:34] VITALS: BP 115/70; PULSE 74; RESP 16; TEMP 36.6; O2SAT 100
--- NOTE | 2024-01-16 09:20 | PC.NURSE ---
ultrasound being completed at this time.
[2024-01-16 10:00] VITALS: BP 108/74; PULSE 77; RESP 17; TEMP 36.6; O2SAT 100
--- NOTE | 2024-01-16 11:00 | PM.OBCN ---
OB Consult Note - [facility] Data Service Date: 01/16/24 Primary Care Provider: None Physician Narrative I was consulted on Reno Sales is a 23 year old female at 17 weeks of gestation presenting to the emergency department with complaint of lower abdominal cramping and spotting since this morning, no vaginal bleeding, being followed up at [facility] for care , not associated with any leakage of fluid or bleeding, no nausea, vomiting or diarrhea, no fever or chills, no urinary symptoms . Rh positive Ultrasound showed the following: Single live intrauterine gestation is identified in cephalic presentation. Calculated gestational age from earliest ultrasound is 17 weeks 5 days. Heart rate of 144 bpm is identified. Placenta is anterior in location with no focal abnormality. Amniotic fluid volume appears appropriate. Cervix appears closed and measures between 3.2 x 3.4 cm. Right ovary measures 3.2 x 2.1 x 2.2 cm. Left ovary measures 3.7 x 1.7 x 1.9 cm. OB PMFSH Past Medical History Medical History No known health problems Social History Social History Substance Use Type: Marijuana Advance Directives: No Advance Directives Information Provided: No Meds Allergies Allergy/AdvReac Type Severity Reaction Status Date / Time amoxicillin [AMOXICILLIN] Allergy Unknown RASH Verified 01/16/24 05:37 cephalexin [From KEFLEX] Allergy Unknown RASH Verified 01/16/24 05:37 OB Physical Exam Physical Exam Additional Comments: Reported by Ann-Marie Chatman NP as the following: Abdominal exam within normal, pelvic exam close cervix , no blood per vagina, no cervical motion tenderness OB Consult Results Labs 01/16/24 06:44 01/16/24 06:44 Labs: Short CBC 01/16/24 Range/Units 06:44 WBC 15.6 H (4.8-10.8) X10*3/uL Hgb 11.4 L (12.0-16.0) g/dl Hct 34.7 L (37.0-47.0) % Plt Count 307 (160-400) X10*3/uL BMP 01/16/24 06:44 Sodium 136 Potassium 4.2 Chloride 108 Carbon Dioxide 21 L BUN 9 Creatinine 0.67 Calcium 9.6 Urine 01/16/24 Range/Units 07:28 Urine Color Yellow Urine Appearance Clear Urine pH 7.0 (5.0-9.0) Ur Specific [place] 1.010 (1.005-1.025) Urine Protein Negative (Neg-Trace) mg/dL Urine Glucose (UA) Negative (Negative) mg/dL OB - CN: A/P Assessment and Plan (1) Vaginal spotting: Status: Acute Assessment and Plan: Recommended the following: GC/CT, SAB warnings to be given to the patient, follow-up more with her OB provider within 24 hours, to come back to the emergency room in case of persistent or conus of her symptoms including pelvic cramping and or spotting/bleeding. Pelvic crest with no intercourse. I spent a total of 20 minutes reviewing the chart, talking to the emergency room provider and documenting in the medical record. Time Spent With Patient Time: Total time managing care of this patient today ____ minutes.
[2024-01-16 12:07] VITALS: BP 108/74; PULSE 77; RESP 17; TEMP 36.6; O2SAT 100
[2024-01-16 13:11] LABS: CT PCR NOT DETECTED (Not Detect.); NG PCR NOT DETECTED (Not Detect.)
== END 2024-01-16 12:07 | disposition home or self-care (01) ==
PROVIDERS: Registered Nurse Emergency; Emergency Provider Emergency Medicine
DX: O20.0 Threatened abortion (principal); Z3A.17 17 weeks gestation of pregnancy
CPT/HCPCS: 36415; 76815; 80048; 81001; 84702; 85025; 86900; 86901; 87491; 87591; 99283; 99284